=== PATIENT | male | born 1980 | race Caucasian/White ===

== ENCOUNTER 2022-09-03 09:21 | Emergency (ER) | payer OTHER, SELFPAY ==
--- NOTE | ~2022-09-03 | XR_ITS ---
EXAMINATION: XR lumbar spine 2-3V DATE: 09/03/2022 10:10 INDICATION: Right-sided sciatica TECHNIQUE: Anteroposterior and lateral views of the lumbar spine, and cone-down lateral view of the l umbosacral junction were obtained. COMPARISON: 01/05/2015 FINDINGS: 5 degrees lumbar levocurvature. 3 mm retrolisthesis L2 on L3 and L3 on L4. 6 mm anterolisthesis L5 on S1. Chronic appearing mild likely physiologic anterior wedging at T12. Lumbar vertebral body heights are normal. Moderate disc height loss with vacuum phenomena at L5-S1. Mild disc height loss at the r emaining lumbar levels. 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 There are anterior and posterior endplate osteophytes, the latter contributing to additional central canal sten osis at L1-L2 through L4-L5. Bilateral L5 pars intra-articularis defects better appreciated on the pr ior oblique radiographs. Mild lumbar facet osteoarthritis. Blunting at the one of the posterior sulci consistent with very small pleural effusion. IMPRESSION: 1. 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 2. Bilateral L5 pars interarticularis defects with 6 mm anterolisthesis L5 on S1. Reviewed, dictated and finalized at location B. IMPRESSION: 1. 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 2. Bilateral L5 pars interarticularis defects with 6 mm anterolisthesis L5 on S 1.
[2022-09-03 09:39] VITALS: BP 197/100; PULSE 100; RESP 18; TEMP 36.2; O2SAT 100
--- NOTE | 2022-09-03 09:57 | ED.BACK ---
HPI - Back Pain/Injury General Chief Complaint: Back Pain/Injury Stated Complaint: LOW BACK PAIN Time Seen by Provider: 09/03/22 09:38 Source: patient History of Present Illness HPI Narrative: this 42-year-old male patient with no significant past medical history related to today's complaint presents to the emergency room with having approximately 1 week of low back pain that radiates into the right leg down the back of the leg. He denies any acute injury to cause the pain initially and states that laying down and sitting for long periods of time makes the pain worse where nothing he has tried including meloxicam and ibuprofen has improved the pain. He has an appointment coming up with his primary care physician and cannot get in any sooner but states the pain was worse this morning. Patient denies any loss of bowel or bladder control and no saddle anesthesia. He has not had any weakness of his legs or giving out of his extremities. Related Data Allergies Allergy/AdvReac Type Severity Reaction Status Date / Time No Known Allergies Allergy Verified 09/03/22 10:01 Review of Systems Review of Systems: See HPI All systems reviewed & are unremarkable except as noted in HPI and below Exam Const: General: No healthy appearing ( Morbidly obese) or no acute distress ( some pain distress present.) Orientation/consciousness: patient oriented x3 Limitations: no limitations and No altered mental status HENMT: Head: normal to inspection Eyes: Conjunctivae: conjunctivae normal Neck: Neck: normal visual inspection and no lymphadenopathy Chest: Chest palpation & inspection: normal inspection of the chest Resp: Effort & Inspection: normal respiratory effort Auscultation: clear to auscultation bilaterally Cardio: Rate: tachycardic Rhythm: regular rhythm Heart sounds: no murmurs GI: Inspection: non-distended GI Palp: Yes Soft to palpation, No Tenderness to palpation present (GI) and No Guarding due to palpation present (GI) Auscultation: normal bowel sounds Back/Spine/Pelvis: Back: no CVA tenderness Other: right paraspinal lumbar spine tenderness to palpation. No step off, no palpable spasm. Skin: General skin exam: normal color Rashes: no rashes Wounds: no wounds Neuro: General: patient oriented x3, moves all extremities and no focal motor deficits Speech: normal speech Gait exam (Neuro): Normal gait present Extrem: General: normal to inspection and no pedal edema Other: Freely and equally moves all extremities well without deficit. Psych: Mental Status: mental status grossly normal Affect: normal affect Course Course Emergency Course: Imaging was performed and patient does have his degree of anterolisthesis of L5 on S1. His pain was treated here with Valium and steroids. He will be discharged home with pain medication and referred to his primary care physician for outpatient MRI and subsequent referral to neurosurgery. Patient is agreeable to this plan of care at the time of discharge. Vital Signs Vital signs: Vital Signs Temperature 97.1 F L 09/03/22 09:39 Pulse Rate 100 09/03/22 09:39 Respiratory Rate 18 09/03/22 09:39 Blood Pressure 197/100 H 09/03/22 09:39 Pulse Oximetry 100 09/03/22 09:39 Oxygen Delivery Room Air 09/03/22 09:39 Temperature 97.1 F L 09/03/22 09:39 Pulse Rate 100 09/03/22 09:39 Respiratory Rate 18 09/03/22 09:39 Blood Pressure 197/100 H 09/03/22 09:39 Pulse Oximetry 100 09/03/22 09:39 Oxygen Delivery Room Air 09/03/22 09:39 MDM - Back Pain/Injury Differential Diagnosis Differential diagnosis: Likely lumbar radiculopathy, sciatica and strain of lumbar region Imaging Data Radiologist's impression: Impressions Lumbar Spine X-Ray 09/03/22 10:11 IMPRESSION: 1. 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 2. Bilateral L
--- NOTE | 2022-09-03 10:02 | PC.NURSE ---
Pt to XRAY via w/c at this time.
[2022-09-03] MEDS: diazePAM INJ (*CRX) 10 MG/2 ML SYRINGE 5 MG IM (10:30)
[2022-09-03] MEDS: TRIAMCINOLONE ACET INJ 40 MG/ML VIAL IM (11:08)
[2022-09-03 11:09] VITALS: BP 170/90; PULSE 77; RESP 18; O2SAT 99
== END 2022-09-03 11:10 | disposition home or self-care (01) ==
PROVIDERS: Emergency Provider Nurse Practitioner Adult Health; PCP Physician Assistant
DX: M54.16 Radiculopathy, lumbar region (principal)
CPT/HCPCS: 72100; 96372; 99284; J3301; J3360

== ENCOUNTER 2022-09-08 08:22 | Emergency (ER) | payer OTHER, SELFPAY ==
[2022-09-08 08:25] VITALS: BP 144/87; PULSE 105; RESP 16; TEMP 36.6; O2SAT 97
--- NOTE | 2022-09-08 08:51 | ED.BACK ---
HPI - Back Pain/Injury General Chief Complaint: Back Pain/Injury Stated Complaint: back pain Time Seen by Provider: 09/08/22 08:27 History of Present Illness HPI Narrative: This is a 42-year-old male, seen here 5 days ago found to have of bilateral L5 pars interarticularis defects with a 6 mm anterior with thesis L5 on S1 who returns to the emergency department complaining of persistent pain. The patient states his pain improved with medications previously prescribed however they have recurred. The patient has attempted to follow-up with his primary care doctor for further imaging as recommended but has had difficulty. He states his pain is unchanged, is intermittently associated with right foot numbness, continues to radiate to the posterior aspect of the right knee but is not associated with loss of sensation in the groin, loss of bowel or bladder control or fever. Related Data Home Medications Medication Instructions Recorded Confirmed dextroamphetamine-amphetamine 30 09/08/22 09/08/22 mg tablet fluoxetine 20 mg capsule mg 09/08/22 fluoxetine 40 mg capsule mg 09/08/22 lamotrigine 100 mg tablet mg 09/08/22 Allergies Allergy/AdvReac Type Severity Reaction Status Date / Time No Known Allergies Allergy Verified 09/08/22 08:38 Review of Systems Review of Systems: CONSTITUTIONAL: Denies fever, chills, or sweats. CARDIOVASCULAR: Denies chest pain, palpitations, or edema. RESPIRATORY: Denies cough or dyspnea. GASTROINTESTINAL: Denies abdominal pain, nausea, vomiting, or diarrhea. GENITOURINARY: Denies dysuria or hematuria. SKIN: Denies rash or itching. MUSCULOSKELETAL: Persistent right lower back pain denies joint pain, or myalgia. NEUROLOGIC: Denies headache, numbness, dizziness, or weakness. PSYCHIATRIC: Denies anxiety or depression. [facility] Past Medical History Medical History (Updated 09/08/22 @ 09:02 by Gt Martin MD) ADHD Social History Social History (Updated 09/08/22 @ 09:01 by Gt Martin MD) Smoking status: Never smoker Alcohol intake: current Substance use: never Exam Narrative: GENERAL: Well-developed, well-nourished, appears uncomfortable HEAD: Normocephalic, atraumatic. EYES: PERRLA and EOMI. ENT: Nares clear, no rhinorrhea or epistaxis. Mucous membranes moist. Oropharynx without tonsillar hypertrophy exudate or other lesions. CHEST: Clear to auscultation. No respiratory distress. No wheezes rales or rhonchi HEART: Regular rate and rhythm. No murmur heard. Normal peripheral pulses. ABDOMEN: Soft, nontender, nondistended, normal active bowel sounds. BACK: No midline spine tenderness to palpation, no step-off or crepitus EXTREMITIES: Tender to palpation over the posterior aspect of the right buttock. Tender to palpation at the posterior aspect of the right knee. Normal range of motion. No edema. SKIN: Warm, dry, no rash. NEURO: No focal deficits. Alert and oriented x3. Strength 5/5 in all extremities, sensation intact bilaterally PSYCH: Normal mood and affect. Course Course Emergency Course: 09:43 - On reevaluation, the patient is no longer pacing in the room and feels much improved. Will discharge with lidocaine patches, muscle relaxants and recommendations for NSAIDs. Discussed return and emergency precautions including signs/symptoms of cauda equina. The patient voiced understanding and is comfortable with the plan. All questions answered to his satisfaction. Vital Signs Vital signs: Vital Signs Temperature 97.9 F 09/08/22 08:25 Pulse Rate 105 H 09/08/22 08:25 Respiratory Rate 16 09/08/22 08:25 Blood Pressure 144/87 H 09/08/22 08:25 Pulse Oximetry 97 09/08/22 08:25 Oxygen Delivery Room Air 09/08/22 08:25 Temperature 97.9 F 09/08/22 08:25 Pulse Rate 105 H 09/08/22 08:25 Respiratory Rate 16 09/08/22 08:25 Blood Pressure 144/87 H 09/08/22 08:25 Pulse Oximetry 97 09/08/22 08:25 Oxygen Delivery Room Air 0
[2022-09-08] MEDS: KETOROLAC (*BKC) 60 MG/2 ML VIAL IM (08:59)
[2022-09-08] MEDS: CYCLOBENZAPRINE HCL 10 MG TABLET PO (08:59)
== END 2022-09-08 09:55 | disposition home or self-care (01) ==
LOC: ANHED 09:28
PROVIDERS: Emergency Provider Preventive Medicine Aerospace Medicine
DX: M54.16 Radiculopathy, lumbar region (principal); F90.9 Attention-deficit hyperactivity disorder, unspecified type
CPT/HCPCS: 96372; 99283; A9270; J1885

== ENCOUNTER 2024-01-26 09:53 | Observation (INO) | payer OTHER, SELFPAY ==
[2024-01-26] VITALS (14 sets, daily range): BP systolic 124–145; BP diastolic 60–88; PULSE 76–85; RESP 12–19; TEMP 36.4–36.6; O2SAT 97–100; BMI 44.1
--- NOTE | ~2024-01-26 | CT_ITS ---
CT abdomen pelvis w con Ordering provider: Larry Russell MD History: 43 years Male with . left sided AP . Comparison: None. Technique: CT abdomen and pelvis with IV and without oral contrast. Automated exposure control and it erative reconstruction technique were employed. The dose-length product was 1487.02 mGy-cm. Findings: VISUALIZED LOWER CHEST: Normal. UPPER ABDOMINAL ORGANS: Liver: Normal. Gallbladder: Distended with no stones. Spleen: Normal. Stomach/duodenum: Normal. Pancreas: Normal. Adrenals: Normal. Kidneys: Bilateral mid pole small cysts are seen. PELVIC ORGANS: The bladder is underfilled. BOWEL AND MESENTERY: Colon: Diverticulitis is seen at the junction of the sigmoid colon with the descending colon. Thicken ing of the wall with Surrounding fat stranding is seen. No abscess formation noted. No free air is se en.. Minimal fluid is in the left paracolic gutter and in the pelvis. Normal appendix. Small Bowel: Normal. No obstruction. Peritoneum/mesentery: No free air. No mesenteric lymphadenopathy. RETROPERITONEUM: Normal aorta. No retroperitoneal lymphadenopathy. MUSCULOSKELETAL: Superficial soft tissues: The superficial soft tissues are normal. Bones: Age appropriate degenerative changes of the spine. Postoperative changes in the lumbosacral ar ea. IMPRESSION: 1. Diverticulitis at the junction of the descending colon with the sigmoid colon with surrounding fa t stranding and thickening in the wall. No definite free air or abscess formation seen. 2. Distended gallbladder with no stones. Reviewed, dictated and finalized at location A. SHIELD TECHNICIAN IMPRESSION: 1. Diverticulitis at the junction of the descending colon with the sigmoid col on with surrounding fat stranding and thickening in the wall. No definite free air or abscess formation seen. 2. Distended gallbladder with no stones.
[2024-01-26] MEDS: MORPHINE SULFATE (*CRX) 4 MG/ML INJ IV PUSH ×2 (12:46→16:01)
[2024-01-26] MEDS: ONDANSETRON INJ 4 MG/2 ML VIAL IV PUSH ×2 (12:46→16:00)
[2024-01-26 12:49] LABS: Basophils Percent Auto 0.2 % (0.2-1.2); Hematocrit 43.1 % (42.0-52.0); Hemoglobin 14.4 g/dL (14.0-18.0); Immature Granulocyte Absolute 0.09 K/mm3 (0.00-0.031); Immature Granulocyte Percent A 0.5 % (0-0.5); Lymphocytes Absolute Auto 0.95 K/mm3 (0.9-3.2); Lymphocytes Percent Auto 4.8 % (18.3-44.2); Mean Corpuscular HGB Conc 33.4 g/dl (32-36); Mean Corpuscular Hemoglobin 29.5 pg (26-34); Mean Corpuscular Volume 88.3 fl (80-100); Mean Platelet Volume 9.4 fl (7.4-10.4); Monocytes Absolute Auto 1.1 K/mm3 (0.1-0.6); Monocytes Percent Auto 5.4 % (2.6-8.5); Neutrophils Absolute Auto 17.5 K/mm3 (1.3-6.7); Neutrophils Percent Auto 89.1 % (45.5-73.1); Platelet Count Result 307 k/mm3 (150-375); Red Blood Count 4.88 M/mm3 (4.6-6.20); Red Cell Distribution Width 12.3 % (11.5-14.5); White Blood Count 19.7 K/mm3 (4.5-10.0)
[2024-01-26 13:00] LABS: Alanine Aminotransferase 31 U/L (6-50); Albumin Level 4.9 g/dL (3.5-5.1); Alkaline Phosphatase 118 U/L (38-126); Anion Gap 6 mmol/L (4-12); Aspartate Amino Transferase 28 U/L (17-59); Bilirubin,Total 0.6 mg/dL (0.2-1.3); Blood Urea Nitrogen 12 mg/dL (9-20); Carbon Dioxide 28 mmol/L (22-30); Chloride 102 mmol/L (98-107); Estimated CRCL calculation 204 ml/min; Estimated Glomerular Filt Rate > 60; Glucose 118 mg/dL (65-110); Lipase 121 U/L (23-300); Potassium 3.9 mmol/L (3.4-5.0); Sodium 136 mmol/L (137-145)
--- NOTE | 2024-01-26 13:13 | ED.ABDPAIN ---
HPI - Abdominal Pain General Chief Complaint: Abdominal Pain Stated Complaint: abdominal pain Time Seen by Provider: 01/26/24 12:04 History of Present Illness HPI narrative: Patient is a 43-year-old male who presents ER with left-sided abdominal pain. Mild discomfort beginning yesterday but significantly increased today. Worse with any type of movement. he develops waves of pain associated with nausea and lightheadedness. He describes mild urinary frequency but no hematuria or dysuria. He is having diarrhea for the last 24 hours without blood. No history of diverticulitis. Related Data Home Medications Medication Instructions Recorded Confirmed dextroamphetamine-amphetamine 30 30 mg PO BID 09/08/22 01/26/24 mg tablet fluoxetine 20 mg capsule 20 mg PO HS 09/08/22 01/26/24 lamotrigine 100 mg tablet 100 mg PO HS 09/08/22 01/26/24 meloxicam 15 mg tablet 15 mg PO DAILY PRN Pain 01/26/24 01/26/24 Allergies Allergy/AdvReac Type Severity Reaction Status Date / Time No Known Allergies Allergy Verified 01/26/24 12:46 Review of Systems Review of Systems: All systems reviewed & are unremarkable except as noted in HPI and below Constitutional: Constitutional: Reports no additional constitutional complaints ENT: Reports system reviewed and no additional complaints, except as documented Cardiovascular: Cardiovascular: Reports no additional cardiovascular complaints Respiratory: Respiratory: Reports no additional respiratory complaints Gastrointestinal: Gastrointestinal: Reports abdominal pain, Reports diarrhea, Reports nausea and Denies vomiting Genitourinary: Genitourinary: Reports no additional male genitourinary complaints PMFSH Past Medical History Medical History (Updated 01/26/24 @ 21:22 by Larry Russell MD) ADHD Social History Social History (Updated 09/08/22 @ 09:01 by Gt Martin MD) Smoking status: Never smoker Alcohol intake: current Substance use: never Do You Feel Safe in your Home?: Yes Lack of Transportation: No Lack of Food: Never True Current Housing: Decline to Answer Concerned About Future Housing: Decline to Answer Difficulty Paying Gas/Electric Bills: Decline to Answer Difficulty Paying for Meds: Decline to Answer Currently Unemployed: Decline to Answer Education: Decline to Answer Difficulty w/ Childcare or Family Care: Decline to Answer Spiritual care concerns: No Exam Narrative: GENERAL: Well-appearing, well-nourished, and in no acute distress. HEAD: Normocephalic, atraumatic. ENT: Mucous membranes moist. CHEST: Clear to auscultation. No respiratory distress. HEART: Regular rate and rhythm. Normal peripheral pulses. ABDOMEN: Soft, LLQ and mid abdominal tenderness with guarding, nondistended. EXTREMITIES: Normal range of motion. No edema. SKIN: Warm, dry, no rash. NEURO: Alert and oriented x3. PSYCH: Normal mood and affect. Course Course Emergency Course: pain improving with morphine. Significant leukocytosis with diverticulitis. Will be started on Zosyn and admitted for observation. Vital Signs Vital signs: Vital Signs Temperature 97.6 F 01/26/24 10:02 Pulse Rate 83 01/26/24 10:02 Respiratory Rate 16 01/26/24 10:02 Blood Pressure 145/88 H 01/26/24 10:02 Pulse Oximetry 100 01/26/24 10:02 Temperature 97.9 F 01/26/24 20:19 Pulse Rate 78 01/26/24 20:19 Respiratory Rate 18 01/26/24 20:19 Blood Pressure 135/62 01/26/24 20:19 Pulse Oximetry 97 01/26/24 20:19 Oxygen Delivery Room Air 01/26/24 20:00 MDM - Abdominal Pain Lab Data 01/26/24 12:44 01/26/24 12:44 Labs: Lab Results 01/26/24 01/26/24 Range/Units 12:44 13:25 WBC 19.7 H (4.5-10.0) K/mm3 RBC 4.88 (4.6-6.20) M/mm3 Hgb 14.4 (14.0-18.0) g/dL Hct 43.1 (42.0-52.0) % MCV 88.3 (80-100) fl MCH 29.5 (26-34) pg MCHC 33.4 (32-36) g/dl RDW 12.3 (11.5-14.5) % Plt Count 307 (150-375) k/mm3 MPV 9.4 (7.4-10.4) fl Immature Gran % (Auto) 0.5 (0-0.5) % Neut % (Auto) 89.1 H (45.5-73.1) % Lymph % (Auto) 4.8 L (18.3-44.2) % [place] % (Auto) 5.4 (2.6-8.5) % Eos % (Auto) 0.0 (0-4.4) % Baso % (Auto) 0.2 (0.2-1.2) % Lymph # (Auto) 0.95 (0.9-3.2) K/mm3 [place] # (Auto) 1.1 H (0.1-0.6) K/mm3 Eos # (Auto) 0.0 (0-0.3) K/mm3 Baso # (Auto) 0.0 (0.0-0.1) K/mm3 Abs Immat Gran (auto) 0.09 H (0.00-0.031) K/mm3 Absolute Neuts (auto) 17.5 H (1.3-6.7) K/mm3 Absolute Nucleated RBC 0.000 (0.0-0.012) K/mm3 Nucleated RBC % 0.0 (0.0-0.2) % Sodium 136 L (137-145) mmol/L Potassium 3.9 (3.4-5.0) mmol/L Chloride 102 (98-107) mmol/L Carbon Dioxide 28 (22-30) mmol/L Anion Gap 6 (4-12) mmol/L BUN 12 (9-20) mg/dL Creatinine 0.50 L (0.7-1.3) mg/dL Estim Creat Clear Calc 204 ml/min Estimated GFR > 60 (59 - ) Glucose 118 H (65-110) mg/dL Calcium 9.0 (8.4-10.2) mg/dL Total Bilirubin 0.6 (0.2-1.3) mg/dL AST 28 (17-59) U/L ALT 31 (6-50) U/L Alkaline Phosphatase 118 (38-126) U/L Total Protein 9.0 H (6.3-8.2) g/dL Albumin 4.9 (3.5-5.1) g/dL Lipase 121 (23-300) U/L Urine Color Yellow (Yellow) Urine Appearance Clear (Clear) Urine pH 7.5 (5.0-9.0) Ur Specific [place] 1.023 (1.001-1.035) Urine Protein Negative (Negative) mg/dL Urine Glucose (UA) Negative (Negative) mg/dL Urine Ketones 1+ H (Negative) mg/dL Ur Blood (Man) Negative (Negative) Urine Nitrate Negative (Negative) Urine Bilirubin Negative (Negative) Urine Urobilinogen 0.2 (<2.0) mg/dL Leukocyte Esterase Rfl Negative (Negative) PAULINA/UL Imaging Data Radiologist's impression: ITS Impressions Abdomen/Pelvis CT 01/26/24 13:17 IMPRESSION: 1. Diverticulitis at the junction of the descending colon with the sigmoid colon with surrounding fat stranding and thickening in the wall. No definite free air or abscess formation seen. 2. Distended gallbladder with no stones. Discharge Plan Discharge Clinical Impression: Diverticulosis large intestine w/o perforation or abscess w/bleeding Patient Disposition: Still a Patient Condition: Stable
[2024-01-26 13:37] LABS: Add Urine Microscopic? NO; Appearance Urine Clear (Clear); Bilirubin Urine Negative (Negative); Blood Urine Negative (Negative); Color Urine Yellow (Yellow); Glucose Urine UA Negative (Negative); Ketones Urine 1+ mg/dL (Negative); Leukocyte Esterase Ur Negative LEU/UL (Negative); Nitrate Urine Negative (Negative); Protein Urine Negative (Negative); Specific Grav Ur 1.023 (1.001-1.035); Urobilinogen Urine 0.2 mg/dL (<2.0); pH Urine 7.5 (5.0-9.0)
--- NOTE | 2024-01-26 14:30 | P.HP_ITS ---
H&P: HPI History of Present Illness Date/Time: 01/26/24 14:30 Chief Complaint: Acute abdominal pain Narrative: 43-year-old male past medical history of ADHD and sleep apnea presents to the hospital with acute left-sided abdominal pain. Patient states that he had mild abdominal pain which became severe today. He states that he was not tolerating food at home so he decided to come to emergency room. Patient states that he has never had this before. He states that any movement it worse nothing he has tried at home has made it better. Patient's leukocytosis at 19.7, negative UA, CT abdomen shows diverticulitis surrounding fat stranding and thickening into the wall, no free air, he also has distended gallbladder with no stones. Blood cultures x2 pending. In the emergency room he was started on IV Zosyn. Patient does not appear to be septic or dehydrated. Review of Systems Review of Systems: 12 systems were reviewed and are negativ e except for as per HPI. PMFSH Past Medical History Medical History (Updated 01/26/24 @ 20:37 by Felicia Gong APRN) ADHD Social History Social History (Updated 09/08/22 @ 09:01 by Gt Martin MD) Smoking status: Never smoker Alcohol intake: current Substance use: never Do You Feel Safe in your Home?: Yes Lack of Transportation: No Lack of Food: Never True Current Housing: Decline to Answer Concerned About Future Housing: Decline to Answer Difficulty Paying Gas/Electric Bills: Decline to Answer Difficulty Paying for Meds: Decline to Answer Currently Unemployed: Decline to Answer Education: Decline to Answer Difficulty w/ Childcare or Family Care: Decline to Answer Spiritual care concerns: No Meds Home Medications and Allergies Home Medications Medication Instructions Recorded Confirmed Type dextroamphetamine-amphetamine 30 30 mg PO BID 09/08/22 01/26/24 History mg tablet fluoxetine 20 mg capsule 20 mg PO HS 09/08/22 01/26/24 History lamotrigine 100 mg tablet 100 mg PO HS 09/08/22 01/26/24 History meloxicam 15 mg tablet 15 mg PO DAILY PRN Pain 01/26/24 01/26/24 History Allergies Allergy/AdvReac Type Severity Reaction Status Date / Time No Known Allergies Allergy Verified 01/26/24 12:46 Vital Signs Vital Signs - 24 hr 01/26/24 10:02 01/26/24 11:22 01/26/24 11:23 Temperature 97.6 F Pulse Rate 83 80 76 Respiratory Rate 16 14 13 Blood Pressure 145/88 H 141/85 H Pulse Oximetry 100 98 99 01/26/24 11:30 01/26/24 11:45 01/26/24 12:45 Temperature Pulse Rate 77 85 Respiratory Rate 12 19 Blood Pressure Pulse Oximetry 100 01/26/24 12:47 01/26/24 13:01 01/26/24 13:19 Temperature Pulse Rate Respiratory Rate Blood Pressure 124/71 132/60 Pulse Oximetry 99 97 01/26/24 13:34 01/26/24 13:47 01/26/24 14:00 Temperature Pulse Rate Respiratory Rate Blood Pressure Pulse Oximetry 97 100 97 01/26/24 14:01 Temperature Pulse Rate 80 Respiratory Rate 18 Blood Pressure 132/66 Pulse Oximetry 100 Exam Narrative: General: well appearing, appears stated age. HEENT: normocephalic, atraumatic. Mucous membranes moist. EOMI, PERRLA, bilateral sclera anicteric, no conjunctival injection. Neck supple without JVD, lymphadenopathy, or bruit. Respiratory: clear to ascultation bilaterally. No rales/rhonic/wheezes. Cardiovascular: Regular rate and rhythm, normal S1-S2 upon ascultation. No murmurs, rubs, or clicks. PMI is nondisplaced, capillary refill less than 3 second. Abdomen: Obese Soft, round, no pulsatile masses, nondistended and mildly tender to palpation. No rebound, no guarding. No CVA tenderness, no hepatosplenomegaly. Bowel sounds present to all four quadrants. No high pitch or tinkling sounds, resonant to percussion. Extremities: No cyanosis, clubbing, or edema present. Pulses are palpable 2/2. Active ROM to all four extremities. Neuro: Alert and orientated x 4. PERRLA. Cranial nerves 2-12 intact without focal deficit. Skin: Warm, dry, and intact, without rash, erythema, or lesion. Psych: pleasant, cooperative, normal speech, normal affect, no hallucinations, no dysarthia H&P: Results Labs Labs: Short CBC 01/26/24 Range/Units 12:44 WBC 19.7 H (4.5-10.0) K/mm3 Hgb 14.4 (14.0-18.0) g/dL Hct 43.1 (42.0-52.0) % Plt Count 307 (150-375) k/mm3 BMP 01/26/24 12:44 Sodium 136 L Potassium 3.9 Chloride 102 Carbon Dioxide 28 BUN 12 Creatinine 0.50 L Glucose 118 H Calcium 9.0 Liver Function 01/26/24 Range/Units 12:44 Total Bilirubin 0.6 (0.2-1.3) mg/dL AST 28 (17-59) U/L ALT 31 (6-50) U/L Alkaline Phosphatase 118 (38-126) U/L Albumin 4.9 (3.5-5.1) g/dL Urine 01/26/24 Range/Units 13:25 Urine Color Yellow (Yellow) Urine Appearance Clear (Clear) Urine pH 7.5 (5.0-9.0) Ur Specific [place] 1.023 (1.001-1.035) Urine Protein Negative (Negative) mg/dL Urine Glucose (UA) Negative (Negative) mg/dL Assessment and Plan Assessment and plan (1) Diverticulosis large intestine w/o perforation or abscess w/bleeding: Code(s): K57.31 - Diverticulosis of large intestine without perforation or abscess with bleeding Status: Acute Assessment and Plan: Okay for diet as tolerate IV Zosyn Pain management A.m. labs (2) Leukocytosis: Code(s): D72.829 - Elevated white blood cell count, unspecified Status: Acute Assessment and Plan: Likely secondary to above AM CBC to monitor Should transition soon to oral antibiotics male with DC home (3) ADHD: Code(s): F90.9 - Attention-deficit hyperactivity disorder, unspecified type Status: Acute Assessment and Plan: Restart home medication (4) Sleep apnea: Code(s): G47.30 - Sleep apnea, unspecified Status: Acute Assessment and Plan: Home CPAP Quality VTE Prophylaxis VTE prophylaxis: mechanical ordered and pharmacologic ordered Hospitalist MIPS Advance Care Plan I have confirmed that the patient's Advanced Care Plan is present, code status is documented, or surrogate decision maker is listed in patient medical record.: Yes Medication Reconciliation I have utilized all available resources to obtain, update and review the patients current medications (includes all prescriptions, OTC, herbals, cannabis, and nutritional supplements).: Yes
--- NOTE | 2024-01-26 14:45 | PC.NURSE ---
attempted to obtain blood cultures with no success. will speak with charge rn about calling phlebotomy
--- NOTE | 2024-01-26 14:46 | PC.NURSE ---
Phlebotomy called to obtain blood cultures.
--- NOTE | 2024-01-26 15:20 | PC.NURSE ---
phlebotomy unable to obtain blood cultures. will speak with provider about the plan prior to starting antibiotics
[2024-01-26] MEDS: PIPERACILLN/TAZ 3.375GM/NS50ML 3.375 GM/50 ML BAG IVPB ×2 (15:37→20:24)
--- NOTE | 2024-01-26 15:40 | PC.NURSE ---
per provider, it is okay to start antibiotic after 1 set of culture
--- NOTE | 2024-01-26 15:51 | ADMGEN ---
This patient, Soto Hilliard, was admitted to Medical Room 343-01. Patient/family oriented to hospital policies and general routines including ID bracelet, bed and alarms, visiting hours, pain management, procedures, bathroom and other care routines, personal items, smoking policy, room service/diet, and visiting hours. Information on how to activate the Rapid Response Team has been discussed. Patient/Family are encouraged to report perceived risks to care and to ask questions if they do not understand what they are told or what they should do.
[2024-01-26] MEDS: SODIUM CHLORIDE 0.9% IV 1,000 ML 125 ML IV CONT (16:03)
[2024-01-26] MEDS: FLUoxetine HCL 20 MG CAPSULE PO (21:43)
[2024-01-26] MEDS: lamoTRIgine 100 MG TABLET PO (21:44)
[2024-01-26] MEDS: HYDROcodone/acetaminophen (*CRX) 5-325 MG TABLET 1 TAB PO (21:45)
[2024-01-27] MEDS: PIPERACILLN/TAZ 3.375GM/NS50ML 3.375 GM/50 ML BAG IVPB ×4 (02:21→20:32)
[2024-01-27] MEDS: SODIUM CHLORIDE 0.9% IV 1,000 ML 125 ML IV CONT ×2 (02:22→11:38)
[2024-01-27 04:41] VITALS: BP 148/86; PULSE 80; RESP 16; TEMP 36.4; O2SAT 99
[2024-01-27] MEDS: HYDROcodone/acetaminophen (*CRX) 5-325 MG TABLET 1 TAB PO ×2 (06:49→11:36)
[2024-01-27] MEDS: ONDANSETRON INJ 4 MG/2 ML VIAL IV PUSH (06:49)
[2024-01-27 07:47] LABS: Basophils Percent Auto 0.2 % (0.2-1.2); Hematocrit 36.8 % (42.0-52.0); Hemoglobin 12.4 g/dL (14.0-18.0); Immature Granulocyte Absolute 0.06 K/mm3 (0.00-0.031); Immature Granulocyte Percent A 0.4 % (0-0.5); Lymphocytes Absolute Auto 1.22 K/mm3 (0.9-3.2); Lymphocytes Percent Auto 8.7 % (18.3-44.2); Mean Corpuscular HGB Conc 33.7 g/dl (32-36); Mean Corpuscular Hemoglobin 29.5 pg (26-34); Mean Corpuscular Volume 87.4 fl (80-100); Mean Platelet Volume 9.3 fl (7.4-10.4); Monocytes Absolute Auto 0.9 K/mm3 (0.1-0.6); Monocytes Percent Auto 6.4 % (2.6-8.5); Neutrophils Absolute Auto 11.9 K/mm3 (1.3-6.7); Neutrophils Percent Auto 84.3 % (45.5-73.1); Platelet Count Result 260 k/mm3 (150-375); Red Blood Count 4.21 M/mm3 (4.6-6.20); Red Cell Distribution Width 12.4 % (11.5-14.5); White Blood Count 14.1 K/mm3 (4.5-10.0)
[2024-01-27 07:52] LABS: Anion Gap 6 mmol/L (4-12); Blood Urea Nitrogen 7 mg/dL (9-20); Calcium 8.4 mg/dL (8.4-10.2); Carbon Dioxide 26 mmol/L (22-30); Chloride 103 mmol/L (98-107); Estimated CRCL calculation 204 ml/min; Estimated Glomerular Filt Rate > 60; Glucose 105 mg/dL (65-110); Potassium 3.6 mmol/L (3.4-5.0); Sodium 135 mmol/L (137-145)
[2024-01-27] MEDS: ENOXAPARIN 40 MG/0.4 ML SYRINGE SUB-Q (09:10)
--- NOTE | 2024-01-27 09:41 | P.PNIM_ITS ---
Progress Note: A&P Assessment and Plan (1) Diverticulosis large intestine w/o perforation or abscess w/bleeding: Code(s): K57.31 - Diverticulosis of large intestine without perforation or abscess with bleeding Status: Acute Assessment and Plan: Patient presented with LLQ abdominal pain and associated nausea and vomiting. CT abdomen and pelvis showed diverticulitis of the descending colon with surrounding fat stranding and bowel wall thickening--no free air or abscess seen. Patient is still having bowel movements with brown, soft stool. Denies blood or mucous present. * WBC 19.7 on admission, normal lactic * Blood cultures pending * IV Zosyn started, decreased IV fluids to 75 ml per hour * Pain management with [place] 10 mg and morphine IVP for severe pain. Zofran as needed for nausea. Can try Bentyl for spasmodic cramping. * Clear liquid diet and advance to low fiber (2) Sleep apnea: Code(s): G47.30 - Sleep apnea, unspecified Status: Acute Assessment and Plan: Home CPAP at bedside with orders to resume Plan Patient had a migraine headache today not improved with Tylenol. Will give a 1 x migraine cocktail of Toradol 30 mg, Compazine 10 mg, and IV Benadryl 25 mg. Anticipate discharge home in the next 24-48 hours. Subjective Date/time seen: 01/27/24 09:41 Interval history: Patient is resting in bed in no acute distress. He is complaining of left lower quadrant pain. He was having nausea and vomiting yesterday but this has not re- occurred today. He also has a migraine that Tylenol has not helped. He has no real appetite. He reports intermittent chills. Review of Systems Review of Systems: 12 systems were reviewed and are negativ e except for as per HPI. Exam Narrative: General: appears uncomfortable, in no acute distress Respiratory: breathing is unlabored with even chest rise/fall, lungs are clear without wheezing, rhonchi, and crackles Cardiovascular: Rate and rhythm regular, normal s1s2, no murmur Abdomen: Soft, round, tenderness to LLQ with rebound pain with RLQ palpation. active bowel sounds Extremities: No cyanosis, edema, clubbing. Pulses 2/2 Neuro: A&O x 4 Skin: Warm, dry, intact Objective Data Vital Signs Vital Signs: Vital Signs - 24 hr 01/26/24 10:02 01/26/24 11:22 01/26/24 11:23 Temperature 97.6 F Pulse Rate 83 80 76 Respiratory Rate 16 14 13 Blood Pressure 145/88 H 141/85 H Pulse Oximetry 100 98 99 Oxygen Delivery 01/26/24 11:30 01/26/24 11:45 01/26/24 12:45 Temperature Pulse Rate 77 85 Respiratory Rate 12 19 Blood Pressure Pulse Oximetry 100 Oxygen Delivery 01/26/24 12:47 01/26/24 13:01 01/26/24 13:19 Temperature Pulse Rate Respiratory Rate Blood Pressure 124/71 132/60 Pulse Oximetry 99 97 Oxygen Delivery 01/26/24 13:34 01/26/24 13:47 01/26/24 14:00 Temperature Pulse Rate Respiratory Rate Blood Pressure Pulse Oximetry 97 100 97 Oxygen Delivery 01/26/24 14:01 01/26/24 17:13 01/26/24 20:19 Temperature 97.9 F Pulse Rate 80 78 Respiratory Rate 18 18 Blood Pressure 132/66 135/62 Pulse Oximetry 100 97 Oxygen Delivery Room Air 01/26/24 20:00 01/27/24 04:41 01/27/24 08:00 Temperature 97.6 F Pulse Rate 80 Respiratory Rate 16 Blood Pressure 148/86 H Pulse Oximetry 99 Oxygen Delivery Room Air Room Air Intake/Output Intake/Output: Intake & Output 01/24/24 01/25/24 01/26/24 01/27/24 23:59 23:59 23:59 23:59 Intake Total 290 1150 Balance 290 1150 Meds/Results Medications: Active Medications Generic Name Dose Route Start Last Admin Trade Name Freq PRN Reason Stop Dose Admin Acetaminophen 650 mg 01/26/24 14:07 Acetaminophen 325 Mg Tablet PO Q4H PRN Mild Pain (1-3) or Fever Hydrocodone Bitart/Acetaminophen 1 tab 01/26/24 14:07 01/27/24 06:49 Hydrocodone/Acetaminophen (*Crx) 5-325 Mg Tablet PO 1 tab Q4H PRN Administration Pain Rated 4-6 Enoxaparin Sodium 40 mg 01/27/24 09:00 01/27/24 09:10 Enoxaparin 40 Mg/0.4 Ml Syringe SUB-Q 40 mg DAILY LETICIA Administration Fluoxetine HCl 20 mg 01/26/24 21:25 01/26/24 21:43 Fluoxetine Hcl 20 Mg Capsule PO 20 mg HS LETICIA Administration Piperacillin/Tazobactam/Dextrose 3.375 gm in 50 mls @ 100 mls/hr 01/26/24 21:00 01/27/24 09:08 Zosyn 3.375 Gm/Ns 50 Ml IVPB 100 mls/hr Q6H LETICIA Administration Sodium Chloride 1,000 mls @ 125 mls/hr 01/26/24 14:10 01/27/24 02:22 Normal Saline Iv IV CONT 125 mls/hr .Q8H LETICIA Administration Lamotrigine 100 mg 01/26/24 21:25 01/26/24 21:44 Lamotrigine 100 Mg Tablet PO 100 mg HS LETICIA Administration Meloxicam 15 mg 01/26/24 21:26 Meloxicam 7.5 Mg Tablet PO DAILY PRN Pain Miscellaneous Information 1 each 01/26/24 00:01 01/27/24 09:16 Dextroamphetamine-Amphetamine 30 Mg Tablet Is Nonformulary Can Patient Bring From Home? XX 02/25/24 00:00 Not Given [facility] Miscellaneous Information 1 each 01/26/24 00:01 Home Meloxicam 15 Mg Prn For Pain, Pain Scale 1-10 Is Currently Covered, Please Clarify Wh XX 02/25/24 00:00 [facility] Morphine Sulfate 4 mg 01/26/24 14:07 01/26/24 16:01 Morphine Sulfate (*Crx) 4 Mg/Ml Inj IV PUSH 4 mg Q2H PRN Administration Pain Rated 7-10 Non-Formulary Medication 30 mg 01/27/24 09:00 Dextroamphetamine-Amphetamine PO 02/26/24 08:59 [facility] Ondansetron HCl 4 mg 01/26/24 14:07 01/27/24 06:49 Ondansetron Inj 4 Mg/2 Ml Vial IV PUSH 4 mg Q4H PRN Administration Nausea Radiology Results: ITS Impressions Abdomen/Pelvis CT 01/26/24 13:17 IMPRESSION: 1. Diverticulitis at the junction of the descending colon with the sigmoid colon with surrounding fat stranding and thickening in the wall. No definite free air or abscess formation seen. 2. Distended gallbladder with no stones. Labs Labs: Laboratory Results - last 24 hr 01/26/24 01/26/24 01/27/24 12:44 13:25 06:23 WBC 19.7 H 14.1 H RBC 4.88 4.21 L Hgb 14.4 12.4 L Hct 43.1 36.8 L MCV 88.3 87.4 MCH 29.5 29.5 MCHC 33.4 33.7 RDW 12.3 12.4 Plt Count 307 260 MPV 9.4 9.3 Immature Gran % (Auto) 0.5 0.4 Neut % (Auto) 89.1 H 84.3 H Lymph % (Auto) 4.8 L 8.7 L [place] % (Auto) 5.4 6.4 Eos % (Auto) 0.0 0.0 Baso % (Auto) 0.2 0.2 Lymph # (Auto) 0.95 1.22 [place] # (Auto) 1.1 H 0.9 H Eos # (Auto) 0.0 0.0 Baso # (Auto) 0.0 0.0 Abs Immat Gran (auto) 0.09 H 0.06 H Absolute Neuts (auto) 17.5 H 11.9 H Absolute Nucleated RBC 0.000 0.000 Nucleated RBC % 0.0 0.0 Sodium 136 L 135 L Potassium 3.9 3.6 Chloride 102 103 Carbon Dioxide 28 26 Anion Gap 6 6 BUN 12 7 L D Creatinine 0.50 L 0.50 L Estim Creat Clear Calc 204 204 Estimated GFR > 60 > 60 Glucose 118 H 105 Calcium 9.0 8.4 Total Bilirubin 0.6 AST 28 ALT 31 Alkaline Phosphatase 118 Total Protein 9.0 H Albumin 4.9 Lipase 121 Urine Color Yellow Urine Appearance Clear Urine pH 7.5 Ur Specific [place] 1.023 Urine Protein Negative Urine Glucose (UA) Negative Urine Ketones 1+ H Ur Blood (Man) Negative Urine Nitrate Negative Urine Bilirubin Negative Urine Urobilinogen 0.2 Leukocyte Esterase Rfl Negative Quality VTE Prophylaxis VTE prophylaxis: mechanical ordered and pharmacologic ordered
[2024-01-27 14:00] VITALS: BP 125/62; PULSE 78; RESP 18; TEMP 37.2; O2SAT 98
[2024-01-27] MEDS: diphenhydrAMINE HCl INJ 50 MG/ML VIAL 25 MG IV PUSH (15:46)
[2024-01-27] MEDS: KETOROLAC 30 MG/ML VIAL (*BKC) IV PUSH (15:47)
[2024-01-27] MEDS: PROCHLORPERAZINE EDISYLATE 10 MG/2 ML VIAL IV PUSH (15:48)
[2024-01-27 20:30] VITALS: BP 139/65; PULSE 66; RESP 20; TEMP 37; O2SAT 98
[2024-01-27] MEDS: DICYCLOMINE HCL 10 MG CAPSULE 20 MG PO (20:33)
[2024-01-27] MEDS: FLUoxetine HCL 20 MG CAPSULE PO (20:33)
[2024-01-27] MEDS: lamoTRIgine 100 MG TABLET PO (20:33)
[2024-01-28] MEDS: PIPERACILLN/TAZ 3.375GM/NS50ML 3.375 GM/50 ML BAG IVPB ×3 (04:36→14:02)
[2024-01-28] MEDS: HYDROcodone/acetaminophen (*CRX) 5-325 MG TABLET 1 TAB PO (05:25)
[2024-01-28 06:00] VITALS: BP 110/90; PULSE 62; RESP 20; TEMP 36.5; O2SAT 99
[2024-01-28 06:08] LABS: Basophils Absolute Auto 0.1 K/mm3 (0.0-0.1); Basophils Percent Auto 0.5 % (0.2-1.2); Eosinophils Percent Auto 0.1 % (0-4.4); Hematocrit 36.2 % (42.0-52.0); Immature Granulocyte Absolute 0.02 K/mm3 (0.00-0.031); Immature Granulocyte Percent A 0.2 % (0-0.5); Lymphocytes Absolute Auto 1.29 K/mm3 (0.9-3.2); Lymphocytes Percent Auto 13.4 % (18.3-44.2); Mean Corpuscular HGB Conc 33.1 g/dl (32-36); Mean Corpuscular Hemoglobin 29.4 pg (26-34); Mean Corpuscular Volume 88.7 fl (80-100); Mean Platelet Volume 9.2 fl (7.4-10.4); Monocytes Absolute Auto 0.7 K/mm3 (0.1-0.6); Monocytes Percent Auto 7.2 % (2.6-8.5); Neutrophils Absolute Auto 7.5 K/mm3 (1.3-6.7); Neutrophils Percent Auto 78.6 % (45.5-73.1); Platelet Count Result 248 k/mm3 (150-375); Red Blood Count 4.08 M/mm3 (4.6-6.20); Red Cell Distribution Width 12.3 % (11.5-14.5); White Blood Count 9.6 K/mm3 (4.5-10.0)
[2024-01-28 06:24] LABS: Alanine Aminotransferase 32 U/L (6-50); Albumin Level 3.9 g/dL (3.5-5.1); Alkaline Phosphatase 108 U/L (38-126); Anion Gap 5 mmol/L (4-12); Aspartate Amino Transferase 30 U/L (17-59); Bilirubin,Total 0.7 mg/dL (0.2-1.3); Blood Urea Nitrogen 10 mg/dL (9-20); Calcium 8.3 mg/dL (8.4-10.2); Carbon Dioxide 25 mmol/L (22-30); Chloride 106 mmol/L (98-107); Estimated CRCL calculation 173 ml/min; Estimated Glomerular Filt Rate > 60; Glucose 122 mg/dL (65-110); Magnesium 2.2 mg/dL (1.6-2.3); Potassium 3.9 mmol/L (3.4-5.0); Sodium 136 mmol/L (137-145)
[2024-01-28] MEDS: DICYCLOMINE HCL 10 MG CAPSULE 20 MG PO ×2 (08:55→13:50)
[2024-01-28] MEDS: ENOXAPARIN 40 MG/0.4 ML SYRINGE SUB-Q (08:56)
[2024-01-28] MEDS: SODIUM CHLORIDE 0.9% IV 1,000 ML 75 ML IV CONT (08:58)
--- NOTE | 2024-01-28 13:38 | P.PNIM_ITS ---
Progress Note: A&P Assessment and Plan (1) Diverticulosis large intestine w/o perforation or abscess w/bleeding: Code(s): K57.31 - Diverticulosis of large intestine without perforation or abscess with bleeding Status: Acute Assessment and Plan: Patient presented with LLQ abdominal pain and associated nausea and vomiting. CT abdomen and pelvis showed diverticulitis of the descending colon with surrounding fat stranding and bowel wall thickening--no free air or abscess seen. Patient is still having bowel movements with brown, soft stool. Denies blood or mucous present. * WBC 19.7 on admission, normal lactic * Blood cultures pending * IV Zosyn started, decreased IV fluids to 75 ml per hour * Pain management with [place] 10 mg and morphine IVP for severe pain. Zofran as needed for nausea. Can try Bentyl for spasmodic cramping. * Clear liquid diet and advance to low fiber. Tolerated full liquids for breakfast. * Stopped IV fluids. (2) Sleep apnea: Code(s): G47.30 - Sleep apnea, unspecified Status: Acute Assessment and Plan: Home CPAP at bedside with orders to resume Plan Patient had a migraine headache today not improved with Tylenol. Will give a 1 x migraine cocktail of Toradol 30 mg, Compazine 10 mg, and IV Benadryl 25 mg. Patient's migraine was aborted with above therapy. Will attempt low fiber diet at lunch and if he tolerates without pain, nausea, or vomiting then can discharge home with oral antibiotics for a total of 10 days. Subjective Date/time seen: 01/28/24 13:38 Interval history: No acute events overnight. His abdominal pain is much improved. He has tolerated a full liquid diet this morning without worsening abdominal pain and no recurrent nausea and vomiting. He would like to try low fiber diet at lunch. He is having bowel movements without bloody stools. Review of Systems Review of Systems: 12 systems were reviewed and are negativ e except for as per HPI. Exam Narrative: General: appears uncomfortable, in no acute distress Respiratory: breathing is unlabored with even chest rise/fall, lungs are clear without wheezing, rhonchi, and crackles Cardiovascular: Rate and rhythm regular, normal s1s2, no murmur Abdomen: Soft, round, tenderness to LLQ with rebound pain with RLQ palpation. active bowel sounds Extremities: No cyanosis, edema, clubbing. Pulses 2/2 Neuro: A&O x 4 Skin: Warm, dry, intact Objective Data Vital Signs Vital Signs: Vital Signs - 24 hr 01/27/24 14:00 01/27/24 20:30 01/28/24 06:00 Temperature 99.0 F 98.6 F 97.7 F Pulse Rate 78 66 62 Respiratory Rate 18 20 20 Blood Pressure 125/62 139/65 110/90 Pulse Oximetry 98 98 99 Oxygen Delivery 01/28/24 08:00 Temperature Pulse Rate Respiratory Rate Blood Pressure Pulse Oximetry Oxygen Delivery Room Air Intake/Output Intake/Output: Intake & Output 01/25/24 01/26/24 01/27/24 01/28/24 23:59 23:59 23:59 23:59 Intake Total 290 3482.2 2127.8 Balance 290 3482.2 2127.8 Meds/Results Medications: Active Medications Generic Name Dose Route Start Last Admin Trade Name Freq PRN Reason Stop Dose Admin Acetaminophen 650 mg 01/26/24 14:07 Acetaminophen 325 Mg Tablet PO Q4H PRN Mild Pain (1-3) or Fever Hydrocodone Bitart/Acetaminophen 1 tab 01/26/24 14:07 01/28/24 05:25 Hydrocodone/Acetaminophen (*Crx) 5-325 Mg Tablet PO 1 tab Q4H PRN Administration Pain Rated 4-6 Hydrocodone Bitart/Acetaminophen 1 tab 01/27/24 12:34 Hydrocodone/Acetaminophen (*Crx) 10-325 Mg Tablet PO Q4H PRN Pain Rated 7-10 Dicyclomine HCl 20 mg 01/27/24 21:00 01/28/24 08:55 Dicyclomine Hcl 10 Mg Capsule PO 20 mg QID LETICIA Administration Enoxaparin Sodium 40 mg 01/27/24 09:00 01/28/24 08:56 Enoxaparin 40 Mg/0.4 Ml Syringe SUB-Q 40 mg DAILY LETICIA Administration Fluoxetine HCl 20 mg 01/26/24 21:25 01/27/24 20:33 Fluoxetine Hcl 20 Mg Capsule PO 20 mg HS LETICIA Administration Piperacillin/Tazobactam/Dextrose 3.375 gm in 50 mls @ 100 mls/hr 01/26/24 21:00 01/28/24 08:56 Zosyn 3.375 Gm/Ns 50 Ml IVPB 100 mls/hr Q6H LETICIA Administration Sodium Chloride 1,000 mls @ 75 mls/hr 01/26/24 14:10 01/28/24 08:58 Normal Saline Iv IV CONT 75 mls/hr .[id number] LETICIA Administration Lamotrigine 100 mg 01/26/24 21:25 01/27/24 20:33 Lamotrigine 100 Mg Tablet PO 100 mg HS LETICIA Administration Morphine Sulfate 4 mg 01/26/24 14:07 01/26/24 16:01 Morphine Sulfate (*Crx) 4 Mg/Ml Inj IV PUSH 4 mg Q2H PRN Administration Pain Rated 7-10 Ondansetron HCl 4 mg 01/26/24 14:07 01/27/24 06:49 Ondansetron Inj 4 Mg/2 Ml Vial IV PUSH 4 mg Q4H PRN Administration Nausea Radiology Results: ITS Impressions Abdomen/Pelvis CT 01/26/24 13:17 IMPRESSION: 1. Diverticulitis at the junction of the descending colon with the sigmoid colon with surrounding fat stranding and thickening in the wall. No definite free air or abscess formation seen. 2. Distended gallbladder with no stones. Labs Labs: Laboratory Results - last 24 hr 01/28/24 05:52 WBC 9.6 RBC 4.08 L Hgb 12.0 L Hct 36.2 L MCV 88.7 MCH 29.4 MCHC 33.1 RDW 12.3 Plt Count 248 MPV 9.2 Immature Gran % (Auto) 0.2 Neut % (Auto) 78.6 H Lymph % (Auto) 13.4 L [place] % (Auto) 7.2 Eos % (Auto) 0.1 Baso % (Auto) 0.5 Lymph # (Auto) 1.29 [place] # (Auto) 0.7 H Eos # (Auto) 0.0 Baso # (Auto) 0.1 Abs Immat Gran (auto) 0.02 Absolute Neuts (auto) 7.5 H Absolute Nucleated RBC 0.000 Nucleated RBC % 0.0 Sodium 136 L Potassium 3.9 Chloride 106 Carbon Dioxide 25 Anion Gap 5 BUN 10 Creatinine 0.60 L Estim Creat Clear Calc 173 Estimated GFR > 60 Glucose 122 H Calcium 8.3 L Magnesium 2.2 Total Bilirubin 0.7 AST 30 ALT 32 Alkaline Phosphatase 108 Total Protein 7.0 Albumin 3.9 Quality VTE Prophylaxis VTE prophylaxis: mechanical ordered and pharmacologic ordered
[2024-01-28 14:00] VITALS: BP 112/68; PULSE 72; RESP 19; TEMP 37; O2SAT 99
--- NOTE | 2024-01-28 14:36 | P.DS_ITS ---
DS: Admitting Diagnosis Discharge Date 01/27 Admitting Diagnosis Abdominal pain DS: Discharge Diagnosis Discharge Diagnosis (1) Diverticulosis large intestine w/o perforation or abscess w/bleeding: Code(s): K57.31 - Diverticulosis of large intestine without perforation or abscess with bleeding Status: Acute Assessment and Plan: Patient presented with LLQ abdominal pain and associated nausea and vomiting. CT abdomen and pelvis showed diverticulitis of the descending colon with surro unding fat stranding and bowel wall thickening--no free air or abscess seen. Patient is still having bowel movements with brown, soft stool. Denies blood or mucous present. * WBC 19.7 on admission, normal lactic * Blood cultures pending * IV Zosyn started, decreased IV fluids to 75 ml per hour * Pain management with [place] 10 mg and morphine IVP for severe pain. Zofran as needed for nausea. Can try Bentyl for spasmodic cramping. * Clear liquid diet and advance to low fiber. Tolerated full liquids for breakfast. * Stopped IV fluids. (2) Sleep apnea: Code(s): G47.30 - Sleep apnea, unspecified Status: Acute Assessment and Plan: Home CPAP at bedside with orders to resume Plan Patient had a migraine headache today not improved with Tylenol. Will give a 1 x migraine cocktail of Toradol 30 mg, Compazine 10 mg, and IV Benadryl 25 mg. Patient's migraine was aborted with above therapy. Will attempt low fiber diet at lunch and if he tolerates without pain, nausea, or vomiting then can discharge home with oral antibiotics for a total of 10 days. DS: Summary Hospital Course Reason for hospitalization: Diverticulitis Hospital Course: 43-year-old male past medical history of ADHD and sleep apnea presents to the hospital with acute left-sided abdominal pain. Patient states that he had mild abdominal pain which became severe today. He states that he was not tolerating food at home so he decided to come to emergency room. Patient states that he has never had this before. He states that any movement it worse nothing he has tried at home has made it better. Patient's leukocytosis at 19.7, negative UA, CT abdomen shows diverticulitis surrounding fat stranding and thickening into the wall, no free air, he also has distended gallbladder with no stones. Blood cultures x2 pending. In the emergency room he was started on IV Zosyn. Patient does not appear to be septic or dehydrated. He was admitted with IV antibiotics, IV fluids, and pain control. Blood cultures with no growth to date. He is tolerating a diet without recurrent nausea, vomiting, or abdominal pain. He is stable for discharge today with an additional 7 day course of antibiotics and with PCP follow up in 1 week. Time Spent with Patient Time attestation: Total time spent providing and/or coordinating discharge services:68 Exam Narrative: General: appears uncomfortable, in no acute distress Respiratory: breathing is unlabored with even chest rise/fall, lungs are clear without wheezing, rhonchi, and crackles Cardiovascular: Rate and rhythm regular, normal s1s2, no murmur Abdomen: Soft, round, tenderness to LLQ with rebound pain with RLQ palpation. active bowel sounds Extremities: No cyanosis, edema, clubbing. Pulses 2/2 Neuro: A&O x 4 Skin: Warm, dry, intact DS: Data Data Completed and Pending Labs on day of discharge: Labs from last 24 hours 01/28/24 05:52 WBC 9.6 RBC 4.08 L Hgb 12.0 L Hct 36.2 L MCV 88.7 MCH 29.4 MCHC 33.1 RDW 12.3 Plt Count 248 MPV 9.2 Immature Gran % (Auto) 0.2 Neut % (Auto) 78.6 H Lymph % (Auto) 13.4 L [place] % (Auto) 7.2 Eos % (Auto) 0.1 Baso % (Auto) 0.5 Lymph # (Auto) 1.29 [place] # (Auto) 0.7 H Eos # (Auto) 0.0 Baso # (Auto) 0.1 Abs Immat Gran (auto) 0.02 Absolute Neuts (auto) 7.5 H Absolute Nucleated RBC 0.000 Nucleated RBC % 0.0 Sodium 136 L Potassium 3.9 Chloride 106 Carbon Dioxide 25 Anion Gap 5 BUN 10 Creatinine 0.60 L Estim Creat Clear Calc 173 Estimated GFR > 60 Glucose 122 H Calcium 8.3 L Magnesium 2.2 Total Bilirubin 0.7 AST 30 ALT 32 Alkaline Phosphatase 108 Total Protein 7.0 Albumin 3.9 Preliminary micro results at discharge 01/26/24 15:10 Blood Culture - Preliminary Blood 01/26/24 15:36 Blood Culture - Preliminary Blood Discharge Plan Discharge Attending physician on discharge: Raúl Munoz Discharging Clinician: Nikki Quiñonez Anticipated Discharge Date/Time: 01/28/24 14:22 Patient Disposition: Home, Self-Care Activity: may shower Diet: low fiber Discharge Instructions: You were admitted with abdominal pain and found to have diverticulitis. We treated you with IV antibiotics and IV fluids and your symptoms have improved. You can discharge today on oral antibiotics for another 7 days. Please complete the entire antibiotic course. If you are having muscle cramps, flank pain, RUQ pain or dark colored urine, please stop the Levaquin and follow up with your PCP. Regardless you should follow up with your PCP in 1 week given this hospitalization. Please monitor for worsening abdominal pain, recurrent nausea, vomiting, or fever greater than 101 degrees please return for evaluation. Patient Instructions: Antibiotic Form, Metronidazole (By mouth), Levofloxacin (By mouth), Diverticulitis (DC), Diverticulitis Diet (DC) Stand Alone Forms: General Discharge Information Follow-up/Referrals: [place],Leela Vega, [employer] [Primary Care Provider] - Discharge Medications: New levofloxacin 750 mg tablet 750 mg PO DAILY 7 Days Qty: 7 0RF metronidazole 500 mg tablet 500 mg PO Q8H 7 Days Qty: 21 0RF Continued meloxicam 15 mg tablet 15 mg PO DAILY PRN (Reason: Pain) dextroamphetamine-amphetamine 30 mg tablet 30 mg PO BID fluoxetine 20 mg capsule 20 mg PO HS lamotrigine 100 mg tablet 100 mg PO HS Date of admission: 01/26/24 14:07 Primary Care Provider: [place] Admitting Provider: Raúl Munoz Attending physician on admission: Nikki Quiñonez Condition: Improved Quality VTE Prophylaxis VTE prophylaxis: mechanical ordered and pharmacologic ordered
== END 2024-01-28 14:50 | disposition home or self-care (01) ==
LOC: ANHED 12:14 → ANH3MED 15:40 → ANH3MEDSUR 15:40
PROVIDERS: Nurse Practitioner Gerontology; Student in an Organized Health Care Education/Training Program; Admitting Provider Internal Medicine; Emergency Provider Emergency Medicine; PCP Nurse Practitioner Family; Visit Provider Nurse Practitioner Acute Care
DX: K57.33 Diverticulitis of large intestine without perforation or abscess with bleeding (principal); D72.829 Elevated white blood cell count, unspecified; F90.9 Attention-deficit hyperactivity disorder, unspecified type; G47.30 Sleep apnea, unspecified; G43.909 Migraine, unspecified, not intractable, without status migrainosus; Z79.899 Other long term (current) drug therapy
CPT/HCPCS: 36415; 74177; 80048; 80053; 81003; 83690; 83735; 85025; 87040; 96361; 96365; 96372; 96375; 96376; 99285; A9270; G0378; J0780; J1200; J1650; J1885; J2270; J2405; J2543; J7030; Q9967